=== PATIENT | male | born 1980 | race Caucasian/White ===

== ENCOUNTER 2021-09-12 20:11 | Emergency (ER) | payer MEDICAID ==
[~2021-09-12] VITALS: Ht 190.5 cm; Wt 159.0 kg
[2021-09-12] MEDS ORDERED: IBUPROFEN 400MG TABLET PO ONE (22:00)
[2021-09-13 02:40] VITALS: BP 112/70
== END 2021-09-13 02:40 | disposition home or self-care (01) ==
LOC: ER 20:11
DX: M54.2 Cervicalgia (principal); R13.10 Dysphagia, unspecified; J02.9 Acute pharyngitis, unspecified
CPT/HCPCS: 70490; 87070; 87430; 99284

== ENCOUNTER 2024-07-12 12:32 | Emergency (ER) | payer MEDICAID ==
[~2024-07-12] VITALS: Ht 185.4 cm; Wt 120.0 kg
[2024-07-12 12:35] VITALS: O2SAT 98
[2024-07-12] MEDS: LIDOCAINE HCL 1% 20ML VIAL INFIL ONE (13:12)
[2024-07-12 13:31] VITALS: BP 123/60; PULSE 62; RESP 16; TEMP 36.6; O2SAT 99
== END 2024-07-12 13:33 | disposition home or self-care (01) ==
LOC: ER 12:32
DX: S91.312A Laceration without foreign body, left foot, initial encounter (principal); F10.90 Alcohol use, unspecified, uncomplicated; R03.0 Elevated blood-pressure reading, without diagnosis of hypertension; X99.1XXA Assault by knife, initial encounter; Y93.89 Activity, other specified; Y92.89 Other specified places as the place of occurrence of the external cause; Y99.8 Other external cause status; Y90.9 Presence of alcohol in blood, level not specified
CPT/HCPCS: 73620; 12001; 99283; J3490; Z7610 ×2